=== PATIENT | female | born 1970 | race Two or more races ===

== ENCOUNTER 2018-06-10 19:30 | Emergency (ER) | payer BC ==
[~2018-06-10] VITALS: Ht 149.9 cm; Wt 68.0 kg
[2018-06-10 19:35] VITALS: BP 146/85
== END 2018-06-10 23:55 | disposition left against medical advice (07) ==
LOC: ER 19:30
DX: Z53.21 Procedure and treatment not carried out due to patient leaving prior to being seen by health care provider (principal)